=== PATIENT | female | born 1950 | race Caucasian/White ===

== ENCOUNTER 2023-02-14 07:57 | Outpatient (AMB) | payer MEDICARE, SELFPAY ==
--- NOTE | 2023-02-14 08:09 | A.OFFVIS_ITS ---
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 She has had episodic dizziness and feeling off balance for past 3 years.she has occasional headaches. SHe describes the dizziness as room spinning, feels off balance, has fear of falling. she has it even at night when she changes position.she fong shad falls related to the dizziness.It can last for 1 hr and has some mild symptoms after that.she has some nausea but thinks its related to her GUT issues. She has occasional tinnitus. she has the dizziness almost everyday and worsens intermittently. No hearing loss. she had a fall in 2019 due to dizziness. she was seen by ENT and vestibular therapy who recommended this evaluation for possible vestibular migraine.. she also has trouble staying asleep.No snoring. she has h/o ophthalmic migraines- has episodic problems with central vision and sees bright spots- with photosensitivty . she has 3-4 episodes a year. she usually respond sto ibuprofen even though she does not have headaches. [facility], [facility] Medical History (Updated 02/14/23 @ 09:36 by Whitney Limon MD) Ocular migraine Vertigo Cervical dystonia Sleep disorder Osteoporosis Hyperlipidemia Generalized headaches GERD (gastroesophageal reflux disease) Surgical History (Updated 02/14/23 @ 08:15 by Mariluz Herman CMA) H/O total hysterectomy Family History (Updated 02/14/23 @ 08:16 by Mariluz Herman CMA) Father No problems noted. Mother No problems noted. Sister Breast CA Social History (Updated 02/14/23 @ 08:17 by Mariluz Herman CMA) Household Members: Spouse Housing: House Alcohol intake: never Patient Tobacco Use Status: Never used Tobacco Physical Exam Vital Signs: Last Vital Signs Pulse 69 02/14/23 08:12 Resp 15 02/14/23 08:12 BP 122/68 02/14/23 08:12 Pulse Ox 96 02/14/23 08:12 Oxygen Delivery Method Room Air 02/14/23 08:12 BMI result Body Mass Index 27.1 Const General: cooperative, healthy appearing, comfortable and no acute distress Nutritional Appearance: average body habitus Orientation/consciousness: patient oriented x3 Eyes Pupils: Equal, round and reactive pupils present Neck Neck: No no meningeal signs Neuro Other: right laterocollis Tightness tenderness right levator scalene and splenius restricted range of motion - No nystagmus General: patient oriented x3, No gait normal, tone normal, No no meningeal signs and No no focal motor deficits Cranial nerves: Yes Facial sensation intact/muscles of mastication intact, Yes Equal, round and reactive pupils present, Yes Bilaterally intact EOM present, Yes Nystagmus not present, Yes Normal facial strength present and Yes Symmetric palate elevation present Cognition (Neuro): normal cognition Gait exam (Neuro): Normal gait present Motor exam (neuro): 5/5 motor strength present throughout and Normal motor muscle tone present throughout Deep tendon reflexes (DTR's): Right triceps reflex intensity grade: 1+, Left triceps reflex intensity grade: 1+, Rt Biceps (C5, C6): 1+, Left biceps reflex intensity grade: 1+, Right brachioradialis reflex intensity grade: 1+, Left brachioradialis reflex intensity grade: 1+, Right patellar reflex intensity grade: 1+ and Left patellar reflex intensity grade: 1+ Coordination: [id number] test normal Assessment & Plan Assessment & Plan (1) Vertigo: Comment: ? 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 Her cervical dystonia could be triggering her vertigo and migraines. Orders: Orders PT Evaluation and Treatment Today G24.3 - Spasmodic torticollis Medications: New cyclobenzaprine 5 mg PO BEDTIME 30 tabs 1RF magnesium oxide 500 mg PO DAILY Coding Level of Care Code New Pt Level 4 (19020) Diagnoses Vertigo R42 Cervical dystonia G24.3
[2023-02-14 08:12] VITALS: BP 122/68; PULSE 69; RESP 15; O2SAT 96; BMI 27.1
== END 2023-02-14 08:49 | disposition home or self-care (01) ==
PROVIDERS: PCP Internal Medicine; Visit Provider Psychiatry & Neurology Neurology
DX: R42 Dizziness and giddiness (principal); G24.3 Spasmodic torticollis
CPT/HCPCS: 99204

== ENCOUNTER → 2023-02-14 07:57 | Outpatient (BNVA) | payer MEDICARE, SELFPAY | PROVIDERS: PCP Internal Medicine; Visit Provider Psychiatry & Neurology Neurology | DX: G24.3 Spasmodic torticollis (principal); R42 Dizziness and giddiness | CPT/HCPCS: 99202 ==

== ENCOUNTER 2023-05-11 09:01 | Outpatient (AMB) | payer MEDICARE, SELFPAY ==
--- NOTE | 2023-05-11 09:02 | A.OFFVIS_ITS ---
Intake Intake Visit Reasons: 3 mo f/u - Atypical Nystagmus-CONF Intake Note: Pt presents for 3 month follow up via telehealth for atypical nystagmus. Facetime at [phone]. Rfid Technician Required: No Allergies No Known Allergies Allergy (Verified 05/11/23 09:04) Medication List - Last Reconciled 05/11/23 by Whitney Limon MD cyclobenzaprine 5 mg PO BEDTIME famotidine (Pepcid) 20 mg PO DAILY magnesium oxide 500 mg PO DAILY HPI HPI Comments History of Present Illness Details 73y/o female calls for follow up of diz ziness and headaches. PT and vestibular therapy helped her significantly.The episodes are mild now and has 2-3 times a week and lasts for few minutes. [facility] Medical History (Updated 02/14/23 @ 09:36 by Whitney Limon MD) Ocular migraine Vertigo Cervical dystonia Sleep disorder Osteoporosis Hyperlipidemia Generalized headaches GERD (gastroesophageal reflux disease) Surgical History H/O total hysterectomy Family History Father No problems noted. Mother No problems noted. Sister Breast CA Social History Household Members: Spouse Housing: House Alcohol intake: never Patient Tobacco Use Status: Never used Tobacco Physical Exam Const General: cooperative Orientation/consciousness: patient oriented x3 Neuro Other: normal speech and mood General: patient oriented x3 Assessment & Plan Assessment & Plan (1) Vertigo: Comment: ? 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 Her cervical dystonia could be triggering her vertigo and migraines. Medications: Refilled cyclobenzaprine 5 mg PO BEDTIME 30 tabs 3RF Telehealth Telehealth Location of provider rendering services: practice address Location of patient: address on file Patient Identification confirmed using: Name, : Yes Telehealth method: voice only Patient verbally consented to treatment: Yes Patient verbally consented to billing insurance company: Yes Patient informed of any privacy concerns related to visit: Yes Minutes spent on Phone/Video with Pt.: 15 Coding Level of Care Code Tele Est Pt Level 3 (15198) Diagnoses Vertigo R42 Cervical dystonia G24.3 Time Spent (min) 15
== END 2023-05-11 11:16 | disposition home or self-care (01) ==
LOC: HO.HSMS 09:02
PROVIDERS: PCP Internal Medicine; Visit Provider Psychiatry & Neurology Neurology
DX: R42 Dizziness and giddiness (principal); G24.3 Spasmodic torticollis
CPT/HCPCS: 99442

== ENCOUNTER → 2023-05-11 09:01 | Outpatient (BNVA) | payer MEDICARE, SELFPAY | PROVIDERS: PCP Internal Medicine; Visit Provider Psychiatry & Neurology Neurology ==

== ENCOUNTER 2023-11-07 07:47 | Outpatient (AMB) | payer MEDICARE, SELFPAY ==
--- NOTE | 2023-11-07 07:53 | MHC.OFFVIS ---
Vital Signs 11/07/23 07:54 Height 5 ft 6 in Weight 163 lb BMI 26.3 BP 146/88 H Blood Pressure Location Rt brachial Position Sitting Respiration 16 Pulse 80 Pulse Source Pulse Oximeter Pulse Oximetry (%) 98 Oxygen Delivery Method Room Air Intake Visit Reasons: Follow up Intake Note: Pt presents for a 6 month follow up for cervical dystonia. Real Time Operator Required: No Allergies No Known Allergies Allergy (Verified 11/07/23 07:54) Medication List - Last Reconciled 11/07/23 by Whitney Limon MD cyclobenzaprine 5 mg PO BEDTIME famotidine (Pepcid) 20 mg PO DAILY magnesium oxide 500 mg PO DAILY nortriptyline 10 mg PO DAILY HPI Comments Details: 73y/o female comes for follow up of dizziness and headaches. she is doing well. PT and vestibular therapy helped her significantly.The episodes are mild now and infrequent.1-2/month. Migraines are 1/2 months . Bright light and certain foods trigger her migraines. In July 2023 ( 45 minutes )-she had numbness in her tongue and right side of the face, right hand and elbow. 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 she had another episode of numbness in her tongue 2 months prior to that lasting 20 minutes . [facility] Medical History Ocular migraine Vertigo Cervical dystonia Sleep disorder Osteoporosis Hyperlipidemia Generalized headaches GERD (gastroesophageal reflux disease) Surgical History H/O total hysterectomy Family History Father No problems noted. Mother No problems noted. Sister Breast CA Social History Household Members: Spouse Housing: House Alcohol intake: never Patient Tobacco Use Status: Never used Tobacco Physical Exam Vital Signs: Last Vital Signs Pulse 80 11/07/23 07:54 Resp 16 11/07/23 07:54 BP 146/88 H 11/07/23 07:54 Pulse Ox 98 11/07/23 07:54 Oxygen Delivery Method Room Air 11/07/23 07:54 BMI result Body Mass Index 26.3 Const General: cooperative, healthy appearing, comfortable and no acute distress Nutritional Appearance: average body habitus Orientation/consciousness: patient oriented x3 Eyes Pupils: Equal, round and reactive pupils present Neck Neck: No no meningeal signs Neuro Other: right laterocollis Tightness tenderness right levator scalene and splenius restricted range of motion - No nystagmus General: patient oriented x3, No gait normal, tone normal, No no meningeal signs and No no focal motor deficits Cranial nerves: Yes Facial sensation intact/muscles of mastication intact, Yes Equal, round and reactive pupils present, Yes Bilaterally intact EOM present, Yes Nystagmus not present, Yes Normal facial strength present and Yes Symmetric palate elevation present Cognition (Neuro): normal cognition Gait exam (Neuro): Normal gait present Motor exam (neuro): 5/5 motor strength present throughout and Normal motor muscle tone present throughout Coordination: [id number] test normal Assessment & Plan Assessment & Plan (1) Vertigo: Comment: ? 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 She saw Bryan Rangel -she was started on Nortriptyline MRI reports and neuro reports from [facility] for review Continue aspirin 81mg qd Medications: New aspirin 81 mg PO DAILY Coding Level of Care Code Est Pt Level 4 (69211) Diagnoses Vertigo R42 Cervical dystonia G24.3
[2023-11-07 07:54] VITALS: BP 146/88; PULSE 80; RESP 16; O2SAT 98; BMI 26.3
== END 2023-11-07 08:37 | disposition home or self-care (01) ==
PROVIDERS: PCP Internal Medicine; Visit Provider Psychiatry & Neurology Neurology
DX: R42 Dizziness and giddiness (principal); G24.3 Spasmodic torticollis
CPT/HCPCS: 99214

== ENCOUNTER → 2023-11-07 07:47 | Outpatient (BNVA) | payer MEDICARE, SELFPAY | PROVIDERS: PCP Internal Medicine; Visit Provider Psychiatry & Neurology Neurology | DX: R42 Dizziness and giddiness (principal); G24.3 Spasmodic torticollis | CPT/HCPCS: 99212 ==

== ENCOUNTER 2024-05-17 14:50 | Outpatient (AMB) | payer MEDICARE, SELFPAY ==
--- NOTE | 2024-05-17 15:01 | A.OFFVIS_ITS ---
Vital Signs 05/17/24 15:02 Height 5 ft 6 in Weight 172 lb BMI 27.8 BP 138/76 Blood Pressure Location Rt brachial Position Sitting Pulse 76 Pulse Source Pulse Oximeter Pulse Oximetry (%) 99 Oxygen Delivery Method Room Air Intake Visit Reasons: Follow up Intake Note: Patient presents for follow up requested MRI report at [facility] done 08/23/23 and neuro notes 08/22/23 Allergies No Known Allergies Allergy (Verified 05/17/24 15:04) Medication List - Last Reconciled 05/17/24 by Whitney Limon MD aspirin 81 mg PO DAILY famotidine (Pepcid) 20 mg PO DAILY magnesium oxide 500 mg PO DAILY nortriptyline 10 mg PO DAILY HPI Comments Details: 74y/o female comes for follow up of dizziness and headaches. PT and vestibular therapy helped her significantly.The episodes are mild now and infrequent.1-2/month. Migraines are 1/2 months .No episodes of tongue numbness Bright light and certain foods trigger her migraines.she tried cheddar cheese and it triggered her dizziness In July 2023 ( 45 minutes )-she had numbness in her tongue and right side of the face, right hand and elbow. 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 [facility] Medical History Ocular migraine Vertigo Cervical dystonia Sleep disorder Osteoporosis Hyperlipidemia Generalized headaches GERD (gastroesophageal reflux disease) Surgical History H/O total hysterectomy Family History Father No problems noted. Mother No problems noted. Sister Breast CA Social History Household Members: Spouse Housing: House Alcohol intake: never Patient Tobacco Use Status: Never used Tobacco Physical Exam Vital Signs: Last Vital Signs Pulse 76 05/17/24 15:02 BP 138/76 05/17/24 15:02 Pulse Ox 99 05/17/24 15:02 Oxygen Delivery Method Room Air 05/17/24 15:02 BMI result Body Mass Index 27.8 Const General: cooperative, healthy appearing, comfortable and no acute distress Nutritional Appearance: average body habitus Orientation/consciousness: patient oriented x3 Eyes Pupils: Equal, round and reactive pupils present Neck Neck: No no meningeal signs Neuro Other: right laterocollis Tightness tenderness right levator scalene and splenius restricted range of motion - No nystagmus General: patient oriented x3, No gait normal, tone normal, No no meningeal signs and No no focal motor deficits Cranial nerves: Yes Facial sensation intact/muscles of mastication intact, Yes Equal, round and reactive pupils present, Yes Bilaterally intact EOM present, Yes Nystagmus not present, Yes Normal facial strength present and Yes Symmetric palate elevation present Cognition (Neuro): normal cognition Gait exam (Neuro): Normal gait present Motor exam (neuro): 5/5 motor strength present throughout and Normal motor muscle tone present throughout Coordination: [id number] test normal Assessment & Plan Assessment & Plan (1) Vertigo: Comment: ? 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
[2024-05-17 15:02] VITALS: BP 138/76; PULSE 76; O2SAT 99; BMI 27.8
--- OUTSIDE RECORDS SUMMARY | 2024-05-17 17:21 | XMS_ITS | Data Portability ---
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 I had a lengthy discussion with the patient regarding management. At this time she would like to hold off on any intervention. Should her symptoms worsen she will call our office and schedule an appointment. I did review with her clinical findings as well as radiographs and treatment modalities in detail. She agrees with the above-noted plan. Indirect care and treatment in conjunction with Dr. La Additional treatment plan discussed with the patient in detail included the following; - Provider focused nonsteroidal anti-inflammator y regimen (discussed were the pros, cons, benefits and risks as well as any black box warnings) - Analgesic pain medication for pain suppression (discussed were the pros, cons, benefits and risks as well as any black box warnings) - The use of topical pain relieving medication were discussed - The use of ice to decrease inflammation and pain - The use of assistive ambulatory devices for ambulation and fall prevention - Formal specific guided physical therapy program I reviewed my findings at length with the patient today. ? ? ?We discussed the nature and etiology of this problem along with current treatment options. We discussed the expected course and outcomes and what to expect. We also discussed risks and benefits. ? ? ?All of their questions were answered today, and there was exhibited understanding and comprehension of all that was discussed. 10 minutes were spent reviewing previous imaging and charting. ? ? ?10 minutes were spent obtaining patient history. ? ? ?5 minutes were spent on physical exam. ? ? ?5? ? ?minutes were spent explaining diagnosis and assessment. Today's documentation was made using voice recognition software. This note may contain grammatical errors secondary to the software. Not available 06/11/2022 14:38:46 Plan of Treatment Reminders Order Date Submit Date Provider Last Modified By Organization Details Last Modified Time Details Appointments None recorded. Lab None recorded. Referral None recorded. Procedures None recorded. Surgeries None recorded. Imaging XR, knee, 1 or 2 view - Left Knee Pain 2022 023 [email or web address] [facility], [address], [place], [address], 3 14:46:44 XR, knee, 1 or 2 view - Right Knee Pain 2022 023 [email or web address] [facility], [address], [address], [place], [address], 3 14:46:44 XR, knee, weightbeari ng - Bilateral Knee Pain 2022 023 [email or web address] [facility], [address], [address], [place], [address], 3 14:46:44 Medication Orders None recorded. Patient TargetsNo targets recorded. Patient Instructions Encounter Date Encounter Id Patient Instructions Last Modified By Organization Details Last Modified Time 06/11/2022 [id number] X-rays of both knees reveal the following AP, Marin, lateral and sunrise view Right knee x-ray with moderately severe degenerative joint space narrowing bilaterally on AP view with subchondral sclerosis and osteophyte formation. Marin view reveals grade 4 degenerative change in the lateral compartment. No acute bony abnormality otherwise normal bone mineralization. She she has severe patellofemoral joint space narrowing lateral and sunrise view. Left knee x-ray reveals grade 3 degenerative changes throughout most notably on Marin view with osteophyte formation and subchondral sclerosis, Not available 06/11/2022 14:40:20 Reason for Referral None Reported. Problems Name Problem SNOMED Code Status Onset Date Resolution Date Notes Provider Name and Address Organization Details Recorded Time Osteoarthri tis of right knee joint 7225729505918 00 Active 2022 SHER PAZ PA-C [address], [place], [address], [place] [facility], [facility] 3 14:37:49 Osteoarthri tis of left knee joint 8199422654919 09 Active 2022 SHER PAZ PA-C [address], [place], [address], [place] [facility], P 3 14:37:53 Problem Notes None recorded. Procedures Surgical History Date Name Laterality Status Provider Name and Address Organization Details Recorded Time operation on breast completed Carlos Oconnell [facility], [facility] 06/11/2022 13:49:50 Total hysterectomy completed Carlos Oconnell [facility], [facility] 06/11/2022 13:49:59 Imaging Results None recorded. Procedure Notes None recorded. Medical Equipment None Reported. Allergies No known drug allergies Medications Name Sig Start Date Stop Date Status Note LastModified by Organization Details LastModified Time azithromycin 250 mg tablet TAKE 2 TABLETS BY MOUTH TODAY, THEN TAKE 1 TABLET DAILY FOR 4 DAYS active Not Available Not Available No t Available sulfamethoxazol e 800 mg-trimethoprim 160 mg tablet TAKE 1 TABLET BY MOUTH EVERY 12 HOURS FOR 5 DAYS active Not Available Not Available No t Available benzonatate 100 mg capsule TAKE 1 CAPSULE BY MOUTH THREE TIMES A DAY FOR 10 DAYS active Not Available Not Available No t Available nitrofurantoin monohydrate/mac rocrystals 100 mg capsule TAKE 1 CAPSULE BY MOUTH TWICE A DAY WITH FOOD FOR 7 DAYS active Not Available Not Available No t Available Paxlovid 300 mg (150 mg x 2)-100 mg tablets in a dose pack TAKE 3 TABLETS BY MOUTH TWICE A DAY FOR 5 DAYS active Not Available Not Available No t Available Vitals Date Recorded Body height Provider Name an d Address Organization Details Last Updated DateTime 06/11/2022 167.64 [address] Oconnell [place] [facility], [facility] 06/11/2022 13:57:54 Social History Question Answer Notes LastModified by Organizat ion Details LastModified Time Tobacco Smoking Status Never Smoker Carlos Oconnell null, [place] [facility] 06/11/2022 13:47:45 What Is Your Level Of Alcohol Consumption? Occasional [email or web address] Information not available 06/11/2022 How Many Times Per Week Do You Consume Alcohol? Less Than 1 Time Per Week [email or web address] Information not available 06/11/2022 Do You Use Any Illicit Or Recreational Drugs? No Information not available 06/11/2022 Do You Or Have You Ever Used Any Other Forms Of Tobacco Or Nicotine? No [email or web address] Information not available 06/11/2022 Sex: Unknown Functional Status None recorded. Mental Status None recorded. Family History Relationship Description Onset Age of this Age Resolved Age Notes LastModified by Organization Details LastModified Time Sister Arthritis [email or web address] Not avai lable 06/11/2022 13:48:47 Father Family history of malignant neoplasm Not available 13:49:05 Father Heart disease [email or web address] Not available 13:49:19 Mother Family history of malignant neoplasm [email or web address] Not available 13:49:05 Mother Heart disease [email or web address] Not available 13:49:19 Son Family history of malignant neoplasm [email or web address] Not available 13:49:05 Medical History Condition Response Allergies/Hayfever Y Gastrointestinal Disease Y Reflux/GERD Y Osteoporosis Y High Cholesterol Y Gynecological HistoryNo gynecological history recorded. Obstetrics History GPAL:G 0 P 0 0 0 0 Past Encounters Encounter ID Performer Location Encounter Start Date Encounter Closed Date Diagnosis/Indication Diagnosis SNOMED-CT Code Diagnosis ICD10 Code Diagnosis Note [id number] MD WARNER Cervantes [address] [place] [address] 06/11/2022 13:31:31 06/11/2022 14:46:44 Pain of left knee joint 4681485699 05997 M25.562 Pain of bi lateral knee joints 1174716992 64730 M25.561 Pain of ri ght knee joint 4296845486 10274 M25.561 Osteoarthr itis of right knee joint 0805726140 47634 M17.11 Osteoarthr itis of left knee joint 8637751613 08910 M17.12 Health Concerns Section Related Observation LastModified by Organization Detai ls LastModified Time None Recorded Concern Status LastModified by Organization Details LastModified Time None Recorded Advance Directives Directive None Recorded Payers Encounter Date Sequence Insurance Name Policy Number Policy Curran Covered Member ID Curran Member ID Guarantor Name 06/11/2022 2 [employer] - OPTIONS Shaila Francisco De [id number] Shaila Francisco De 06/11/2022 1 MEDICARE [place]: [employer] Shaila Adames Neeraj ramos [id number] Shaila Francisco De Notes Date Note Type Note Provider Name and Address Organization Details Recorded Time 06/11/2022 text/html This is a very pleasant 72-year-old female here for evaluation of bilateral knee pain has been ongoing for many years. She states she enjoys gardening for which she is on her knees which make her symptoms more symptomatic. She occasionally will take an ibuprofen however she approaches medicine and a holistic approach with naturopathic remedies. She describes her pain is medial and lateral in nature. Denies any injury denies any previous surgery here for evaluation and treatment. SHER PAZ PA-C [address] [place] [address],[facility] [address], [place], [address], [place] [facility] 06/11/2022 14:41:36 OBGyn Episode No OBEpisode recorded.
--- OUTSIDE RECORDS SUMMARY | 2024-05-17 17:21 | XMS_ITS | Data Portability ---
Author Organization [facility] - [facility], [address] Address [address] [place] [address] Assessment No assessment recorded. Plan of Treatment Reminders Order Date Submit Date Provider Last Modified By Organization Details Last Modified Time Details Appointments None recorded. Lab None recorded. Referral None recorded. Procedures None recorded. Surgeries None recorded. Imaging None recorded. Medication Orders polymyxin B sulfate 10,000 unit-trimet hoprim 1 mg/mL eye drops 2023 024 [facility]/Pharmacy #[id number], [address] [place], [address], 4 10:33:42 amoxicillin 875 mg tablet 2022 024 [facility]/Pharmacy #[id number], [address] [place], [address], 4 10:05:01 Patient TargetsNo targets recorded. Patient Instructions Encounter Date Encounter Id Patient Instructions Last Modified By Organization Details Last Modified Time 07/10/2022 [id number] Acute Sinusitis: Care Instructions [email or web address] Not available 07/10/2022 08:23:41 07/04/2023 [id number] visual acuity* [email or web address] Not available 07/04/2023 16:51:24 Reason for Referral None Reported. Results Created Date Observation Date Name Description Value Unit Range Abnormal Flag Note LastModifiedBy Organization Detail LastModifiedTime 07/04/1907/04/2023 visua l acuit y* Performed? Yes Not Available [address] [place], [address], 07/04/2023 10:41:55 Result Notes None recorded. Problems Name Problem SNOMED Code Status Onset Date Resolution Date Notes Provider Name and Address Organization Details Recorded Time Dizziness 563476795 Active Lelo Sheth bart, [place] - [facility] 4 10:06:46 Acid reflux 525261826 Active Lelo arriaga, [place] - [facility] 4 10:07:18 Acute conjunctivi tis of bilateral eyes 2441141399043 04 Active 2023 Wojciech William, FITTING ROOM OPERATOR [address] , [place], [address] , [facility] - [facility] 4 10:32:08 Problem Notes None recorded. Medical Equipment None Reported. Allergies No known drug allergies Medications Name Sig Start Date Stop Date Status Note LastModified by Organization Details LastModified Time azithromyci n 250 mg tablet TAKE 2 TABLETS BY MOUTH TODAY, THEN TAKE 1 TABLET DAILY FOR 4 DAYS 07/03 completed Not Available Not Available Not Available famotidine 40 mg tablet TAKE 1 TABLET BY MOUTH EVERYDAY AT BEDTIME active Not Available Not Available No t Available sulfamethox azole 800 mg-trimetho prim 160 mg tablet TAKE 1 TABLET BY MOUTH EVERY 12 HOURS FOR 5 DAYS 07/03 completed Not Available Not Available Not Available amoxicillin 875 mg tablet Take 1 tablet every 12 hours by oral route with meals for 10 days. 07/03 completed Not Available Not Available Not Available benzonatate 100 mg capsule TAKE 1 CAPSULE BY MOUTH THREE TIMES A DAY FOR 10 DAYS 07/03 completed Not Available Not Available Not Available polymyxin B sulfate 10,000 unit-trimet hoprim 1 mg/mL eye drops INSTILL 1 DROP INTO AFFECTED EYE(S) BY OPHTHALMI C ROUTE EVERY 6 HOURS x 7 days. 2023 active Not Available Not Available Not Avai lable ondansetron 4 mg disintegrat ing tablet DISSOLVE 1 TABLET BY MOUTH 4 TIMES A DAY NEEDED active Not Available Not Available No t Available nitrofurant oin monohydrate /macrocryst als 100 mg capsule TAKE 1 CAPSULE BY MOUTH TWICE A DAY WITH FOOD FOR 7 DAYS 07/03 completed Not Available Not Available Not Available cyclobenzap rine 5 mg At night for dizzyness active Not Available Not Available No t Available Flowflex COVID-19 Antigen Home Test kit USE DIRECTED 07/03 completed Not Available Not Available Not Available Paxlovid 300 mg (150 mg x 2)-100 mg tablets in a dose pack TAKE 3 TABLETS BY MOUTH TWICE A DAY FOR 5 DAYS 07/03 completed Not Available Not Available Not Available Vitals Date Recorded Body height Body mass index (BMI) Body weight Oxygen saturation Oxygen saturation in Arterial blood by Pulse oximetry Heart rate Respiratory rate Body temperature Systolic blood pressure Diastolic blood pressure Provider Name and Address Organization Details Last Updated DateTime 3 165.1 cm 27.1 kg/m2 94409.5 6 g 97 % 97 % 91 /min 18 /min 98 [degF] 117 mm[Hg] 80 mm[Hg] Guanaco Frias [facility] 3 08:13:34 Date Recorded Body height Body mass index (BMI) Body weight Respiratory rate Pain severity - 0-10 verbal numeric rating [Score] - Reported Oxygen saturation Oxygen saturation in Arterial blood by Pulse oximetry Heart rate Body temperature Systolic blood pressure Diastolic blood pressure Provider Name and Address Organization Details Last Updated DateTime 4 165.1 cm 28.3 kg/m2 57906.7 g 17 /min 0 97 % 97 % 84 /min 97.8 [degF] 136 mm[Hg] 83 mm[Hg] Lelo Sheth [place] [email or web address] 4 10:09:37 Social History Question Answer Notes LastModified by Organizat ion Details LastModified Time Tobacco Smoking Status Never Smoker Lelo arriaga [place] [facility] 07/04/2023 10:07:43 What Is Your Level Of Alcohol Consumption? Occasional [email or web address] Information not available 07/04/2023 Are You Currently Employed? No [email or web address] Information not available 07/04/2023 Have You Had A Flu Shot This Season? Yes [email or web address] Information not available 07/04/2023 Have You Had Direct Contact, Or Contact During Intimacy, With Monkeypox Rash, Scabs, Or Body Fluids From A Person With Monkeypox? No [email or web address] Information not available 07/04/2023 What Is Your Relationship Status? [email or web address] Information not available 07/04/2023 Do You Use Any Illicit Or Recreational Drugs? No Information not available 07/10/2022 Have You Recently Traveled Abroad? No [email or web address] Information not available 07/04/2023 Are You Currently In School? No Information not available 07/04/2023 Do You Or Have You Ever Used Any Other Forms Of Tobacco Or Nicotine? No Information not available 07/10/2022 Sex: Unknown Functional Status None recorded. Mental Status None recorded. Family History Relationship Description Onset Age of this Age Resolved Age Notes LastModified by Organization Details LastModified Time Father No current problems or disability [email or web address] Not available 07/10 08:14:04 Mother No current problems or disability [email or web address] Not available 07/10 08:14:04 Medical History No medical history recorded. Gynecological HistoryNo gynecological history recorded. Obstetrics History GPAL:G 0 P 0 0 0 0 Past Encounters Encounter ID Performer Location Encounter Start Date Encounter Closed Date Diagnosis/Indication Diagnosis SNOMED-CT Code Diagnosis ICD10 Code Diagnosis Note [id number] [address] [place] [address] 08/18/2019 09:33:42 08/18/2019 09:59:06 [id number] [address] [place] [address] 05/14/2017 13:18:24 05/14/2017 14:06:47 [id number] [address] [place] [address] 10/15/2019 11:02:07 10/15/2019 12:35:24 [id number] Hemanth Yuan, [address] [place] [address] 07/10/2022 08:04:29 07/10/2022 08:24:22 Acute sinusitis 27759979 J01.90 Given Hx and Sx and PE findings will Rx Antibiotic s.recommen d taht she c/w flonase nasal spray Take antibiotic with food. Eat a yogurt daily or take a probiotic while taking the antibiotic . Recommend humidified airrest, fluidstyle nol/ibu prn Patient advised to follow up as needed for worsening symptoms or no improvemen t. Discussed concerning red flags with patient and reasons to follow up in the Emergency Department urgently. [id number] [place]oj[place] [address] [facility] [address] [facility] ERICA chavez [address] 07/04/2023 09:49:28 07/04/2023 10:45:45 Acute conjunctivitis of bilateral eyes 3608214246 66569 H10.33 Based on your presentati on and exam, you are going diagnosed with Conjunctiv itis. I am going to cover you for a bacterial infection in the eye with antibiotic eye drops. Sometimes these symptoms can be caused by a virus or allergies. Viral infections with spontaneou sly resolve after 7-10 days and do not require treatment. If it is an allergy cause sometime oral allergy medication s will help with these symptoms or a allergy eye drop that can be purchased OTC. The following are my recommenda tions to help with your symptoms and this diagnosis: 1. Do not rub your eyes this can cause it to spread or damage the cornea of your eye.2. Wash surfaces such as cell phones, remotes, door knob frequently , because this is how it is transmitte d to others.3. Do not wear contacts for at least 1 week if you have contacts.4 . No makeup5. You can take Ibuprofen or Tylenol for discomfort if you are not allergic to them.6. If you get lubricatin g eye drops and put them in the refrigerat or - this can help with itching and discomfort . You should be seen again if you develop any of the following symptoms1. Eye pain or pressure behind the eye.2. Redness or significan t swelling of the eyelid or around the eye3. Headache4. Fever > 100.55. No improvemen t in current symptoms in the next 1 week. Thank you for using [employer] today, please feel free to contact us with any questions or concerns. Blurring o f visual image 966696663 H53.8 Health Concerns Section Related Observation LastModified by Organization Detai ls LastModified Time None Recorded Concern Status LastModified by Organization Details LastModified Time None Recorded Advance Directives Directive None Recorded Payers Encounter Date Sequence Insurance Name Policy Number Policy Curran Covered Member ID Curran Member ID Guarantor Name 05/14/2017 1 [place] [employer] Shaila Singh-[place] ker [id number] Shaila Adames Francisco-Bowke r 05/14/2017 2 [employer] HE[employer]CARE OPTIONS (MEDICARE SUPPLEMENT) Shaila Gonzalesker [id number] Shaila Adames [place] r 08/18/2019 1 [place] [employer] [employer] Shaila Singh-[place] ker [id number] Shaila Adames [place] r 08/18/2019 2 [employer] HE[employer]CARE OPTIONS (MEDICARE SUPPLEMENT) Shaila Singh Cyrus [id number] Shaila Adames [place] r 10/15/2019 1 [place] [employer] Shaila Singh-[place] ker [id number] Shaila Adames Francisco-[place] r 10/15/2019 2 [employer] HE[employer]CARE OPTIONS (MEDICARE SUPPLEMENT) Shaila Singh Cyrus [id number] Shaila Adames Francisco-Bowke r 07/10/2022 1 [place] [employer] [place] Shaila Singh-[place] ker [id number] Shaila Adames Francisco-Bow[place] r 07/10/2022 2 [employer] HEALTHCARE OPTIONS (MEDICARE SUPPLEMENT) Shaila Singh Cyrus [id number] Shaila Adames Francisco-[place] r 07/04/2023 1 [place] [place] Shaila Singh-[place] ker [id number] Shaila Zacarias Francisco-Bowke r 07/04/2023 2 [employer] HEALTHCARE OPTIONS (MEDICARE SUPPLEMENT) Shaila Singh Cyrus [id number] Shaila Adames Francisco-Bowke r Notes Date Note Type Note Provider Name and Address Organization Details Recorded Time 3 text/html CongestionReported bypatient.Notes:72 yo female c/o right ear ache and congestion x 1 week.Pain in her R jaw/teethdiminished taste/smellHA and dizzinessShe tested posiitve for flu a week ago.using otc mucinex, sudafed and uses flonase dailytired a netti pot No feverNo chills+ coughNo difficulty breathing or respiratory distressNo wheezeNo CPNo sore throatNo Abdominal painNo nauseaNo vomitingNp diarrheaNo myalgiaNo fatigueNo rash No recent travelNo known sick contactsnon smoker Hemanth Yuan, DO [address] [place], [address], [place] - [facility] 07/10/2022 08:25:32 4 text/html Eye problemsReported bypatient.source of patient informationInformation obtained from patient; Patient arrived at Urgent Care ambulatory; learning styles: auditory Location:bilateral Eye Symptoms:no pain in the eyes; no blurred vision;sensitivity to light;redness;discharge Severity:mild Onset/Timindays Context:other exposure Modifying Factors:nothing gives relief sherie Aggravating factors:bright light makes it worse sherie Alleviating factors:nothing helps Wojciech William NP [address] [facility] [place], [address], [place] - [facility] 07/07/2023 09:24:17 OBGyn Episode No OBEpisode recorded.
--- OUTSIDE RECORDS SUMMARY | 2024-05-17 17:21 | XMS_ITS | Data Portability ---
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 Today we discussed the pros and cons of doing a trial of low-dose nortriptyline to help reduce her sensitivity to triggers. We discussed the potential side effects of this medication at length. After full discussion she would like to try low-dose nortriptyline at 10 mg at bedtime. I will see her back in about 2 months for reevaluation of her symptoms. In the meantime she will continue to do food challenges to see if she can expand her dietary repertoire Not available 11/01/2023 10:35:23 01/03/2024 01/03/2024 Patient with chronic/recurrent BPPV due to underlying vestibular migraine. Patient has responded very well to combination of identification and elimination of migraine triggers, as well as low-dose nortriptyline, 10 mg at bedtime. I have recommended she continue on this regimen going forward. We did discuss some methods of doing some food challenges to try to give her more variety with regards to her diet. She has all of the resources necessary to carry this out. Recommend follow-up in 1 year, or earlier should she have any problems. If patient does have sporadic recurrence of BPPV, she can contact Ailyn Ortiz for Yolanda maneuvers as necessary, and we can provide referrals as needed. [email or web address] Not available 01/03/2024 14:12:52 Plan of Treatment Reminders Order Date Submit Date Provider Last Modified By Organization Details Last Modified Time Details Appointments Establish ed 10 2024 03:30P M MATI FUNEZ MD Not available Not available Not available Lab None recorded. Referral None recorded. Procedures None recorded. Surgeries None recorded. Imaging None recorded. Medication Orders nortripty line 10 mg capsule 2023 024 [facility]/Pharmacy #[id number], [address] [place], [address], 11/01/2023 10:33:15 Patient TargetsNo targets recorded. Patient InstructionsNo instructions recorded. Reason for Referral None Reported. Results Created Date Observation Date Name Description Value Unit Range Abnormal Flag Note LastModifiedBy Organization Detail LastModifiedTime 10/19/19 24 06/09/2022 imagi ng/di agnos tic resul t No observ ation record ed. [email or web address] Not Available 06:13:39 10/19/19 24 01/05/2020 imagi ng/di agnos tic resul t No observ ation record ed. [email or web address] Not Available 06:14:15 10/19/19 24 06/09/2022 audio gram No observ ation record ed. [email or web address] Not Available 06:14:39 Result Notes None recorded. Problems Name Problem SNOMED Code Status Onset Date Resolution Date Notes Provider Name and Address Organization Details Recorded Time Dizziness and giddiness 945713498 Active 2022 Dizziness and giddiness; Note: Date Diagnosed: 06/09/2022 2:01 PM (R42) Not Available [facility] 4 03:17:21 Sensorine ural hearing loss of bilateral ears 613058170 Active 2022 Sensorineu ral hearing loss, bilateral; Note: Date Diagnosed: 06/09/2022 2:01 PM (H90.3) Not Available [facility] 4 03:17:21 Vertigo of central origin 81003806 Active 2022 Vertigo of central origin; Note: Date Diagnosed: 12/09/2022 11:17 AM (H81.4) Not Available [facility] 4 03:17:21 Closed fracture of nasal bones 51334044 Active 2019 Fracture of nasal bones, initial encounter for closed fracture; Note: Date Diagnosed: 01/10/2020 10:03 AM (S02.2XXA) Not Available [facility] 4 03:17:21 Refractor y migraine 212556089 Active 2022 Other migraine, intractabl e, without status migrainosu s; Note: Date Diagnosed: 12/09/2022 11:17 AM (G43.819) Not Available [facility] 4 03:17:21 Insomnia 028441832 Active 2022 Insomnia NOS; Note: Date Diagnosed: 12/09/2022 1:10 PM (G47.00) Not Available [facility] 4 03:17:20 Benign paroxysma l positiona l vertigo 562178605 Active 2023 Benign paroxysmal vertigo, unspecifie d ear; Note: Changed from H81.13 to H81.10 (06/14/2023 11:25 AM) , Date Diagnosed: 06/14/2023 11:25 AM (H81.13) Not Available [facility] 4 03:17:20 Problem Notes None recorded. Procedures Surgical History Date Name Laterality Status Provider Name and Address Organization Details Recorded Time Hysterectomy completed Radha Washington [place] - [facility] 11/01/2023 10:00:22 Breast reduction completed Radha Washington [place] - [facility] 11/01/2023 10:00:28 Imaging Results Imaging Date Name Status [facility] Details LastModified Time 06/09/2022 imaging/diagno stic result completed Information not available 10/19/2023 06:13:39 01/05/2020 imaging/diagno stic result completed Information not available 10/19/2023 06:14:15 06/09/2022 audiogram completed [email or web address] [email or web address] Information not available 10/19/2023 06:14:39 Procedure Notes None recorded. Medical Equipment None Reported. Allergies No known drug allergies Medications Name Sig Start Date Stop Date Status Note LastModified by Organization Details LastModified Time ofloxacin 0.3 % eye drops INSTILL 1 DROP INTO AFFECTED EYE 4 TIMES A DAY FOR 5 DAYS 10/31 completed Not Available Not Available Not Available famotidin e 40 mg tablet TAKE 1 TABLET BY MOUTH EVERY NIGHT AT BEDTIME. active Not Available Not Available No t Available pravastat in 10 mg tablet TAKE 1 TABLET BY MOUTH EVERYDAY AT BEDTIME active Not Available Not Available No t Available nortripty line 10 mg capsule TAKE 1 CAPSULE BY MOUTH EVERY DAY 2023 active Not Available Not Available Not Avai lable polymyxin B sulfate 10,000 unit-trim ethoprim 1 mg/mL eye drops INSTILL 1 DROP INTO AFFECTED EYE(S) EVERY 6 HOURS FOR 7 DAYS 10/31 completed Not Available Not Available Not Available aspirin 81 mg chewable tablet TAKE 1 TABLET BY MOUTH DAILY. DO NOT EXCEED 48 CAPSULES IN 24 HOURS active Not Available Not Available No t Available cyclobenz aprine 5 mg tablet active Medicati on ID: [id number] B rand Name: adrianne leong Send Method: E-Prescr ibed Sub s Allowed: subs OK Speci al Instruct ion: TAKE 1 TABLET BY MOUTH AT BEDTIME Medicati onGeneri cName: adrianne zaprine Not Available Not Available Not Available Vitals None Recorded Social History None recorded. Functional Status None recorded. Mental Status None recorded. Family History Nothing Reported. Medical History Condition Response GERD/Reflux Y High Cholesterol Y Gynecological HistoryNo gynecological history recorded. Obstetrics History GPAL:G 0 P 0 0 0 0 Past Encounters Encounter ID Performer Location Encounter Start Date Encounter Closed Date Diagnosis/Indication Diagnosis SNOMED-CT Code Diagnosis ICD10 Code Diagnosis Note [id number] MATI FUNEZ MD [facility] [address] [place] [address] 11/01/2023 09:36:27 11/01/2023 10:36:06 Benign paroxysmal positional vertigo 105289308 H81.10 Refractory migraine 4238 04093 G43.819 Vertigo of central origin 39374609 H81.4 [id number] MATI FUNEZ MD [facility] [address] [address] 01/03/2024 13:50:35 01/03/2024 14:12:29 Benign paroxysmal positional vertigo 911615577 H81.10 Refractory migraine 4238 90519 G43.819 Vertigo of central origin 44983944 H81.4 Health Concerns Section Related Observation LastModified by Organization Detai ls LastModified Time None Recorded Concern Status LastModified by Organization Details LastModified Time None Recorded Advance Directives Directive None Recorded Payers Encounter Date Sequence Insurance Name Policy Number Policy Curran Covered Member ID Curran Member ID Guarantor Name 11/01/2023 1 [employer]ARP HEALTHCARE OPTIONS (MEDICARE SUPPLEMENT) Shaila Gonzalesker [id number] Shaila Gonzalesker 11/01/2023 1 [place] Shaila Pickard ker [id number] Shaila Gonzalesker 01/03/2024 2 [employer]ARP HEALTHCARE OPTIONS (MEDICARE SUPPLEMENT) Shaila Gonzalesker [id number] Shaila Singh Cyrus 01/03/2024 1 [place] B-[place]: [facility] Shaila Pickard ker [id number] Shaila Bridges Notes Date Note Type Note Provider Name and Address Organization Details Recorded Time 11/01/2023 text/html Patient with his tory of chronic positionally induced vertigo which appears to be a combination of BPPV and vestibular migraine. She was able to follow my recommendations with regards to identification and elimination of triggers and as of our last visit back in May she was having significantly reduced residual symptoms. I have referred her back to AT. We discussed possibility of starting low-dose nortriptyline but she did not want to consider that. She comes in today reporting a couple of flareups related to some dietary intake. In addition patient recently had a big workup for some neurological symptoms including facial, tongue, and upper extremity numbness. She had MRI scan with a tentative diagnosis of TIA. There was some consideration of an aneurysm but ultimately this was ruled out by Sofie. These neurological symptoms may have been another manifestation of migraine. MATI FUNEZ MD [address] [place] [address], [address], [facility] - [facility] 11/01/2023 10:36:45 01/03/2024 text/html Patient with his tory of chronic positionally induced vertigo which appears to be a combination of BPPV and vestibular migraine. She was able to follow my recommendations with regards to identification and elimination of triggers and as of our last visit back in May she was having significantly reduced residual symptoms. At her last visit we elected to proceed with trial of low-dose nortriptyline 10 mg at bedtime. Patient reports she had some flareup of symptoms when she started the medication, but it might have been due to some fluorescent lights in her workplace. She did get some blue janina glasses and since then she has been doing much better. She reports overall that her symptoms are much better on the low-dose nortriptyline. No recent symptoms at all. MATI FUNEZ MD [address] [place] [address], [place], [address], [facility] - [facility] 01/03/2024 14:14:10 OBGyn Episode No OBEpisode recorded.
--- OUTSIDE RECORDS SUMMARY | 2024-05-17 17:21 | XMS_ITS | Clinical Summary ---
Author Organization [facility] ity Address [id number] [place] [id number] Care Team Providers Care Hand Tube Winder Name Role Phone Scott Hills MD Primary Care Provider [phone] Social History Tobacco Use Types Packs/Day Years Used Date Smoking Tobacco: Never Assessed Comments Unknown Sex and Gender Information Value Date Recorded Sex Assigned at Female 12/29/2023 2:55 PM EDT Legal Sex Female 11:27 AM EST Gender Identity Female 12/29/2023 2:55 PM EDT Sexual Orientation Straight 12/29/2023 2: 55 PM EDT Plan of Treatment Health Maintenance Due Date Last Done Comments Breast Cancer Screening 1950 DTaP,Tdap,and Td Vaccines (1 - Tdap) 1970 Pneumococcal Vaccine: 50+ Ye ars (1 of 1 - PCV) 2001 Zoster Vaccines (1 of 2) 2001 COVID-19 Vaccine ( - 2023-2 5 season) 2023 Influenza Vaccine (#1) 2023 RSV Immunization Patients 60 + Years Old (1 - 1-dose 75+ series) 2026 HIB Vaccines Aged Out No longer eligi ble based on patient's age to complete this topic HPV Vaccines Aged Out No longer eligi ble based on patient's age to complete this topic Hepatitis A Vaccines Aged Out No long er eligible based on patient's age to complete this topic Hepatitis B Vaccines Aged Out No long er eligible based on patient's age to complete this topic IPV Vaccines Aged Out No longer eligi ble based on patient's age to complete this topic MMR Vaccines Aged Out No longer eligi ble based on patient's age to complete this topic Meningococcal ACWY Vaccine Aged Out N o longer eligible based on patient's age to complete this topic Meningococcal B Vacine Aged Out No lo nger eligible based on patient's age to complete this topic RSV Immunization Patients Un yasmeen 20 months Aged Out No longer eligible b ased on patient's age to complete this topic Varicella Vaccines Aged Out No longer eligible based on patient's age to complete this topic Care Teams Hand Tube Winder Relationship Specialty Start Date End Date Scott Hills MD [address] [place], [place] [address]vignesh Alie [address] PCP - General Internal Medicine 12/29/23
== END 2024-05-17 15:18 | disposition home or self-care (01) ==
LOC: HO.HSMS 14:51
PROVIDERS: PCP Internal Medicine; Visit Provider Psychiatry & Neurology Neurology
DX: R42 Dizziness and giddiness (principal); G24.3 Spasmodic torticollis
CPT/HCPCS: 99214

== ENCOUNTER → 2024-05-17 14:50 | Outpatient (BNVA) | payer MEDICARE, SELFPAY | PROVIDERS: PCP Internal Medicine; Visit Provider Psychiatry & Neurology Neurology | DX: R42 Dizziness and giddiness (principal); G24.3 Spasmodic torticollis | CPT/HCPCS: 99212 ==

== ENCOUNTER 2024-11-19 14:46 | Outpatient (AMB) | payer MEDICARE, SELFPAY ==
--- NOTE | 2024-11-19 14:53 | MHC.OFFVIS ---
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 she is doing good occasionally feels off balance . The episodes are mild now and infrequent.1-2/month. Migraines are 1/2 months .No episodes of tongue numbness Bright light and certain foods trigger her migraines.she tried cheddar cheese and it triggered her dizziness In July 2023 ( 45 minutes )-she had numbness in her tongue and right side of the face, right hand and elbow. 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 [facility] Medical History Ocular migraine Vertigo Cervical dystonia Sleep disorder Osteoporosis Hyperlipidemia Generalized headaches GERD (gastroesophageal reflux disease) Surgical History H/O total hysterectomy Family History Father No problems noted. Mother No problems noted. Sister Breast CA Social History Household Members: Spouse Housing: House Alcohol intake: never Patient Tobacco Use Status: Never used Tobacco Physical Exam Vital Signs: Last Vital Signs Pulse 82 11/19/24 14:54 BP 136/84 11/19/24 14:54 Pulse Ox 99 11/19/24 14:54 Oxygen Delivery Method Room Air 11/19/24 14:54 BMI result Body Mass Index 27.3 Const General: cooperative, healthy appearing, comfortable and no acute distress Nutritional Appearance: average body habitus Orientation/consciousness: patient oriented x3 Eyes Pupils: Equal, round and reactive pupils present Neck Neck: No no meningeal signs Neuro Other: right laterocollis Tightness tenderness right levator scalene and splenius restricted range of motion - No nystagmus General: patient oriented x3, No gait normal, tone normal, No no meningeal signs and No no focal motor deficits Cranial nerves: Yes Facial sensation intact/muscles of mastication intact, Yes Equal, round and reactive pupils present, Yes Bilaterally intact EOM present, Yes Nystagmus not present, Yes Normal facial strength present and Yes Symmetric palate elevation present Cognition (Neuro): normal cognition Gait exam (Neuro): Normal gait present Motor exam (neuro): 5/5 motor strength present throughout and Normal motor muscle tone present throughout Coordination: [id number] test normal Assessment & Plan Assessment & Plan (1) Vertigo: Comment: ? 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
[2024-11-19 14:54] VITALS: BP 136/84; PULSE 82; O2SAT 99; BMI 27.3
== END 2024-11-19 15:07 | disposition home or self-care (01) ==
LOC: HO.HSMS 14:47
PROVIDERS: PCP Internal Medicine; Visit Provider Psychiatry & Neurology Neurology
DX: R42 Dizziness and giddiness (principal); G24.3 Spasmodic torticollis
CPT/HCPCS: 99214

== ENCOUNTER → 2024-11-19 14:46 | Outpatient (BNVA) | payer MEDICARE, SELFPAY | PROVIDERS: PCP Internal Medicine; Visit Provider Psychiatry & Neurology Neurology | DX: G24.3 Spasmodic torticollis (principal); R42 Dizziness and giddiness; Z79.899 Other long term (current) drug therapy | CPT/HCPCS: 99212 ==